=== PATIENT | female | born 1950 | race Caucasian/White ===

== ENCOUNTER → 2018-11-20 13:56 | Outpatient (CLI) | payer OTHER, SELFPAY ==
--- NOTE | 2018-11-20 | DI.RAD.S_ITS ---
PROCEDURE: XR CHEST 2V INDICATIONS: COUGH TECHNIQUE: 2 views of the chest were acquired. COMPARISON: [facility], CHEST 2 VIEW, 09/21/2016, 14:00. [facility], CHEST 2 VIEW, 11/07/2015, 11:07. FINDINGS: Surgical changes and devices: None. Lungs and pleura: No pleural effusions or pneumothorax. Lungs are clear. Mediastinum: Mediastinal contours are normal. Heart size is normal. Bones and chest wall: No suspicious bony abnormalities. Soft tissues appear unremarkable. IMPRESSION: Normal for age, source of current symptoms is not seen. Dictated by: Terry Jules M.D. on 11/20/2018 at 14:48 Approved by: Terry Jules M.D. on 11/20/2018 at 14:48
== END ==
PROVIDERS: PCP Physician Assistant; Visit Provider Internal Medicine
DX: R05 Cough (principal)
CPT/HCPCS: 71046

== ENCOUNTER → 2019-01-02 13:15 | Outpatient (CLI) | payer MEDICARE, SELFPAY ==
[2019-01-02 13:50] LABS: Hemoglobin A1C% w Est Avg Glu 8.9 % (4.0-6.0)
[2019-01-02 14:00] LABS: Alanine Aminotransferase 33 IU/L (9-52); Albumin 4.6 g/dL (3.5-5.0); Albumin Globulin Ratio 1.9 (1.0-2.8); Alkaline Phosphatase 66 U/L (38-126); Aspartate Aminotransferase 27 IU/L (14-36); BUN Creatinine Ratio 25.7 (6-22); Bilirubin Total 0.5 mg/dL (0.2-1.3); Blood Urea Nitrogen 18 mg/dL (7-17); Calcium 10.1 mg/dL (8.4-10.2); Carbon Dioxide 29 mmol/L (22-32); Chloride 104 mmol/L (98-107); Cholesterol 160 mg/dL (140-199); Estimated Glomerular Filt Rate > 60.0 mL/min (>60); Globulin 2.4 g/dL (1.7-4.1); Glucose 127 mg/dL (80-110); HDL Cholesterol 59 mg/dL (40-60); HEMOLYSIS 61 (0-50); LDL Cholesterol Calculated 67 mg/dL (<100); Potassium 5.1 mmol/L (3.4-5.1); Sodium 142 mmol/L (137-145); Triglycerides 169 mg/dL (35-150)
[2019-01-02 14:01] LABS: Add Manual Diff / Slide Review NO; Basophils Absolute Auto 100 /uL (0-100); Basophils Percent Auto 0.4 % (0-2); Eosinophils Absolute Auto 200 /uL (0-450); Eosinophils Percent Auto 1.5 % (2-4); Hematocrit 43.6 % (36-46); Hemoglobin 13.9 g/dL (12.0-16.0); Lymphocytes Absolute Auto 7900 /uL (1100-4500); Lymphocytes Percent Auto 53.3 % (25-40); Mean Corpuscular HGB Conc 31.9 % (30-36); Mean Corpuscular Hemoglobin 25.3 PG (26-34); Mean Corpuscular Volume 79.3 fL (80-100); Monocytes Absolute Auto 600 /uL (0-900); Neutrophils Absolute Auto 6000 /uL (1500-7000); Neutrophils Percent Auto 40.8 % (50-75); Platelet Count 230 X10^3/uL (150-400); Red Blood Cell Count 5.49 X10^6/uL (4.0-5.2); Red Cell Distribution Width 14.2 % (11.6-14.8); White Blood Cell Count 14.8 X10^3/uL (4.5-11.0)
== END ==
PROVIDERS: PCP Physician Assistant; Visit Provider Physician Assistant
DX: E11.9 Type 2 diabetes mellitus without complications (principal); I10 Essential (primary) hypertension; J45.21 Mild intermittent asthma with (acute) exacerbation; E78.2 Mixed hyperlipidemia
CPT/HCPCS: 36415; 80053; 80061; 83036; 85025

== ENCOUNTER → 2019-01-20 10:05 | Outpatient (CLI) | payer MEDICARE, SELFPAY ==
--- NOTE | 2019-01-20 | DI.MG.S_ITS ---
BILATERAL DIGITAL SCREENING MAMMOGRAM 3D/2D WITH CAD: 01/20/2019 CLINICAL: Routine screening. Comparison is made to exams dated: 09/24/2017 mammogram and 07/15/2012 mammogram - [facility]. There are scattered fibroglandular elements in both breasts. Current study was also evaluated with a Computer Aided Detection (CAD) system. There are benign calcifications in both breasts. No significant masses, calcifications, or other findings are seen in either breast. There has been no significant interval change. IMPRESSION: There is no mammographic evidence of malignancy. A 1 year screening mammogram is recommended. This exam was interpreted at Station ID: [id number]. NOTE: For mammograms, a report in lay terms will be sent to the patient. Approximately 15% of breast malignancies will not be visualized mammographically. In the management of a palpable breast mass, a negative mammogram must not discourage biopsy of a clinically suspicious lesion. Electronically Signed By: Jordan rowell/carri:01/20/2019 11:01:09 letter sent: Normal Exam ACR BI-RADS Category 2: Benign Finding(s) 3342F
== END ==
PROVIDERS: PCP Physician Assistant; Visit Provider Physician Assistant
DX: Z12.31 Encounter for screening mammogram for malignant neoplasm of breast (principal)
CPT/HCPCS: 77063; 77067

== ENCOUNTER → 2019-10-06 14:06 | Outpatient (CLI) | payer MEDICARE, SELFPAY ==
--- NOTE | 2019-10-06 | DI.RAD.S_ITS ---
PROCEDURE: XR CHEST 2V INDICATIONS: cough TECHNIQUE: 2 views of the chest were acquired. COMPARISON: [facility], CR, XR CHEST 2V, 11/20/2018, 14:00. FINDINGS: Surgical changes and devices: None. Lungs and pleura: Lungs are clear. No pleural effusions or pneumothorax. Mediastinum: Mediastinal contours are normal. Heart size is normal. Bones and chest wall: No suspicious bony abnormalities. Soft tissues appear unremarkable. IMPRESSION: No acute disease. Dictated by: Melchor Ascencio M.D. on 10/06/2019 at 17:36 Approved by: Melchor Ascencio M.D. on 10/06/2019 at 17:37
[2019-10-06 17:41] LABS: Alanine Aminotransferase 26 IU/L (<35); Albumin 4.4 g/dL (3.5-5.0); Albumin Globulin Ratio 1.9 (1.0-2.8); Alkaline Phosphatase 85 U/L (38-126); Aspartate Aminotransferase 23 IU/L (14-36); BUN Creatinine Ratio 24.3 (6-22); Bilirubin Total 0.4 mg/dL (0.2-1.3); Blood Urea Nitrogen 17 mg/dL (7-17); Calcium 10.2 mg/dL (8.4-10.2); Carbon Dioxide 31 mmol/L (22-32); Chloride 104 mmol/L (98-107); Cholesterol 177 mg/dL (140-199); Estimated Glomerular Filt Rate > 60.0 mL/min (>60); Globulin 2.3 g/dL (1.7-4.1); Glucose 138 mg/dL (80-110); HDL Cholesterol 58 mg/dL (40-60); HEMOLYSIS < 15 (0-50); LDL Cholesterol Calculated 81 mg/dL (<100); Potassium 3.9 mmol/L (3.4-5.1); Sodium 142 mmol/L (137-145); Total Protein 6.7 g/dL (6.3-8.2); Triglycerides 188 mg/dL (35-150)
[2019-10-06 18:08] LABS: Basophils Absolute Auto 0 /uL (0-100); Basophils Percent Auto 0.2 % (0-2); Eosinophils Absolute Auto 200 /uL (0-450); Eosinophils Percent Auto 1.4 % (2-4); Hematocrit 42.7 % (36-46); Hemoglobin 13.5 g/dL (12.0-16.0); Lymphocytes Absolute Auto 7200 /uL (1100-4500); Lymphocytes Percent Auto 53.8 % (25-40); Mean Corpuscular HGB Conc 31.7 % (30-36); Mean Corpuscular Hemoglobin 25.5 PG (26-34); Mean Corpuscular Volume 80.4 fL (80-100); Monocytes Absolute Auto 500 /uL (0-900); Monocytes Percent Auto 3.4 % (3-14); Neutrophils Absolute Auto 5600 /uL (1500-7000); Neutrophils Percent Auto 41.2 % (50-75); Platelet Count 189 X10^3/uL (150-400); Red Blood Cell Count 5.31 X10^6/uL (4.0-5.2); Red Cell Distribution Width 13.8 % (11.6-14.8); White Blood Cell Count 13.5 X10^3/uL (4.5-11.0)
[2019-10-06 18:29] LABS: Hemoglobin A1C% w Est Avg Glu 7.8 % (4.0-6.0)
[2019-10-06 18:41] LABS: Add Manual Diff / Slide Review SLIDE REVIEW; RBC Morphology Normal Morphology; Smudge Cells 1+
== END ==
PROVIDERS: PCP Physician Assistant; Visit Provider Physician Assistant
DX: R05 Cough (principal); I10 Essential (primary) hypertension; E11.9 Type 2 diabetes mellitus without complications; E78.2 Mixed hyperlipidemia
CPT/HCPCS: 71046; 80053; 80061; 83036; 85025

== ENCOUNTER → 2019-10-15 10:52 | Outpatient (CLI) | payer MEDICARE, SELFPAY ==
--- NOTE | 2019-10-16 13:51 | PM.PFT.1 ---
Pulmonary Function Test Referral & Results Date Patient Seen: 10/15/19 Requesting provider: Merline Mehta Results: The spirometry demonstrates an FVC of 1.98 L which is 76% of predicted. The FEV1 was measured at 1.63 L which is 82% of predicted. The FEV1/FVC ratio was 82 which is 108% of predicted. Following the administration of bronchodilator there was no change. Lung volumes show an SVC of 1.78 L which is 71% of predicted. The diffusing capacity was measured at 17.0 which is 90% of predicted. The maximum voluntary ventilation was reduced Interpretation: This study demonstrates very mild obstructive lung disease based on slight reduction in FEV1 without evidence of benefit following bronchodilator There is also mild reduction lung volumes suggesting mild restrictive lung disease Clinical correlation suggested
== END ==
PROVIDERS: PCP Physician Assistant; Visit Provider Physician Assistant
DX: J45.21 Mild intermittent asthma with (acute) exacerbation (principal)
CPT/HCPCS: 94060; 94726; 94729

== ENCOUNTER → 2019-10-29 13:29 | Oncology outpatient (ONC) | payer MEDICARE, SELFPAY ==
[2019-10-29 13:55] VITALS: BP 132/76; PULSE 83; RESP 18; TEMP 36.6; O2SAT 97
--- NOTE | 2019-10-29 13:57 | ONC.CONS ---
History of Present Illness - Data of Consult Patient: new to practice Consult date: 10/29/19 Requesting Physician: Merline Mehta PA-C Primary Care Provider: Merline Mehta PA-C - Consult Narrative Reason for consult: Lymphocytosis with smudged cells Narrative: Eliza Gupta is a 69 year old female. She has been followed by her primary care provider Katherine Granados for her known diagnosis of diabetes and hypertension. According to patient, during her previous 2 visits, she was informed of an elevated white blood cell counts. The most recent laboratory tests on 10/06/2019 showed WBC 13.5, hemoglobin 13.5, hematocrit 42.7, platelets 189, absolute lymphocyte count 7200, and smudge cells 1+. She was then referred to our clinic for further evaluation. Clinically, patient denies any lumps or bumps or lymph nodes enlargement. She denies fever or night sweats or chills. She denies any on usual fatigue. She has some back pain. She has history of erectile bowel syndrome and has been very careful with food. Otherwise she complains abdominal discomfort and pain. She denies any diarrhea or constipation. CC: Lissy Del Angel MD Patient reports pain?: No Home Medications and Allergies Home Medications Medication Instructions Recorded Confirmed Type Lantus U-100 Insulin 35 unit SQ BID #0 12/22/12 07/11/19 History aspirin 650 mg PO QDAY #0 12/22/12 10/29/19 History losartan [Cozaar] 100 mg PO QDAY #0 12/22/12 07/11/19 History simvastatin [Zocor] 40 mg PO HS #0 12/22/12 10/29/19 History dulaglutide [Trulicity] 1.5 mg SUBCUT DAILY 10/29/19 10/29/19 History Allergies Allergy/AdvReac Type Severity Reaction Status Date / Time OPIATES Allergy Unknown Uncoded 03/05/18 12:20 Medical History - Medical, Surgical, Family History Medical History: Medical History (Last Updated 10/29/19 @ 14:03 by Lissy Del Angel MD) Diabetes Hypertension IBS (irritable bowel syndrome) Surgical History: Surgical History History of tonsillectomy Status post tubal ligation Family History: Family History (Last Updated 10/29/19 @ 14:05 by Lissy Del Angel MD) Mother Melanoma Ovarian cancer - Social History Smoking Status: Never smoker Substance Use Type: does not use Alcohol Intake: current (once or twice a week, champange.) Review of Systems All systems PM: reviewed and no additional remarkable complaints except as stated Exam Vital signs: Vital Signs Temp Pulse Resp BP Pulse Ox 10/29/19 13:55 98 F 83 18 132/76 97 Intake and Output 10/28/19 10/29/19 10/29/19 23:59 07:59 15:59 Other: Weight 98.7 kg Patient Weight 10/29/19 23:59 Weight 98.7 kg Narrative: Gen: WDWN, obese, NAD, pleasant and cooperative, accompanied by her HEENT: NCAT, EOMI, PERRLA, anicteric sclera. Neck: Supple, No palpable thyromegaly or lymphadenopathy. Respiratory: CTAB, no wheezes audible. No JVD Cardiovascular: RRR, S1 and S2 normal, no M/G/R. Abdomen: Soft, protuberant, and difficult to examine for organomegaly Extremities: No LE pitting edema. Lymphatic: no palpable lymph nodes in the neck, axillae, or groins. Neurological: AOx3, CN II-XII grossly intact. No focal motor or sensory deficit. Psychiatric: Normal affect. Results - Labs Pending - Imaging Additional studies: Procedures Injection or infusion of other therapeutic or prophylactic substance (12/22/12) Assessment and Plan (1) Lymphocytosis Overview: 69 year old with laboratory findings of lympphocytosis and smudge cells. No lymphadenopathy and no B symptoms. Assessment: First of all, I explained to the patient that she has increased total white blood cell count, that is due to the increase in the absolute lymphocyte count. In addition microscopic examination of her peripheral blood showed smudge cells. I explained to them that these findings are suspicious for possible chronic lymphocytic leukemia. To further confirm the diagnosis, I would obtain blood samples for lymphoma leukemia flow cytometry. Today I touched briefly about the natural course of chronic lymphocytic leukemia. I talked with her that CLL is a chronic disease. Majority of the patients with CLL can be monitored without active treatment. Plan: CBC, CMP, LDH, B2M CLL flowcytometry RTC in 2 weeks to review the results.
--- NOTE | 2019-11-11 12:43 | ONC.SCHED ---
patient asked to cancel 11/16/19 appt/they sold their house and had to be out in 13 days/they are moving to [place], when she finds a provider in [place], she'll have her records sent down
== END ==
PROVIDERS: Family Provider Physician Assistant; PCP Physician Assistant; Visit Provider Internal Medicine Hematology & Oncology
DX: D72.820 Lymphocytosis (symptomatic) (principal); E11.9 Type 2 diabetes mellitus without complications; I10 Essential (primary) hypertension
CPT/HCPCS: 36415; 80053; 82232; 83615; 85025; 99204; 99214

== ENCOUNTER → 2019-10-29 14:30 | Outpatient (CLI) | payer MEDICARE, SELFPAY ==
[2019-10-29 15:26] LABS: Add Manual Diff / Slide Review NO; Basophils Absolute Auto 100 /uL (0-100); Basophils Percent Auto 0.7 % (0-2); Eosinophils Absolute Auto 300 /uL (0-450); Eosinophils Percent Auto 1.8 % (2-4); Hematocrit 41.3 % (36-46); Hemoglobin 13.6 g/dL (12.0-16.0); Lymphocytes Absolute Auto 7600 /uL (1100-4500); Lymphocytes Percent Auto 53.9 % (25-40); Mean Corpuscular HGB Conc 32.9 % (30-36); Mean Corpuscular Hemoglobin 25.9 PG (26-34); Mean Corpuscular Volume 78.8 fL (80-100); Monocytes Absolute Auto 400 /uL (0-900); Neutrophils Absolute Auto 5700 /uL (1500-7000); Neutrophils Percent Auto 40.6 % (50-75); Platelet Count 183 X10^3/uL (150-400); Red Blood Cell Count 5.24 X10^6/uL (4.0-5.2); Red Cell Distribution Width 13.8 % (11.6-14.8); White Blood Cell Count 14.1 X10^3/uL (4.5-11.0)
[2019-10-29 15:49] LABS: Alanine Aminotransferase 24 IU/L (<35); Albumin 4.4 g/dL (3.5-5.0); Albumin Globulin Ratio 1.8 (1.0-2.8); Alkaline Phosphatase 110 U/L (38-126); Aspartate Aminotransferase 22 IU/L (14-36); BUN Creatinine Ratio 28.8 (6-22); Bilirubin Total 0.5 mg/dL (0.2-1.3); Blood Urea Nitrogen 23 mg/dL (7-17); Calcium 9.7 mg/dL (8.4-10.2); Carbon Dioxide 26 mmol/L (22-32); Chloride 104 mmol/L (98-107); Estimated Glomerular Filt Rate > 60.0 mL/min (>60); Globulin 2.4 g/dL (1.7-4.1); Glucose 250 mg/dL (80-110); HEMOLYSIS < 15 (0-50); Lactate Dehydrogenase 341 U/L (313-618); Potassium 4.2 mmol/L (3.4-5.1); Sodium 139 mmol/L (137-145); Total Protein 6.8 g/dL (6.3-8.2)
[2019-10-31 15:27] LABS: Beta-2-Microglobulin 2.08 mg/L (< 2.52)
== END ==
PROVIDERS: PCP Physician Assistant; Visit Provider Internal Medicine Hematology & Oncology
DX: D72.820 Lymphocytosis (symptomatic) (principal)
CPT/HCPCS: 36415; 80053; 82232; 83615; 85025

== ENCOUNTER → 2019-11-06 09:53 | Outpatient (CLI) | payer MEDICARE, SELFPAY ==
--- NOTE | 2019-11-06 | DI.RAD.S_ITS ---
PROCEDURE: FL BARIUM SWALLOW W SPEECH INDICATIONS: Dysphagia, unspecified TECHNIQUE: Examination was conducted in conjunction with speech pathology per standard protocol. In the lateral projection, filming was performed of the patient swallowing. AP projection filming may also be performed with patient swallowing. COMPARISON: None. FINDINGS: Function: The oral preparatory phase appears normal, with proper containment. The subsequent oral propulsive phase, pharyngeal phase, and esophageal phase of swallowing also appear normal with all proffered substances. No laryngotracheal penetration or aspiration. No pathologic vallecular pooling. Morphology: No cricopharyngeal bar is identified. No cervical esophageal webs. No Zenker's diverticulum. No strictures. IMPRESSION: No aspiration. Dictated by: Melchor Ascencio M.D. on 11/06/2019 at 11:38 Approved by: Melchor Ascencio M.D. on 11/06/2019 at 11:39
--- NOTE | 2019-11-06 15:54 | ST.SWALLOW ---
Visit Care Team Role Provider Type Merline Mehta PA-C Attending Provider Advanced Special Officer [employer]omat Primary Care Provider Specialty: Internal Medicine Address: [address] [place] [address], [facility] Email: [email or web address] ST Modified Barium Swallow Study CRA OFFICER Modified Barium Swallow Study Start: 11/06/19 11:25 Freq: Status: Active Protocol: Document 11/06/19 11:25 TLC (Rec: 11/06/19 11:29 TLC [id number]) Modified Barium Swallow Study Total Time Visit Start Time 10:30 Visit Stop Time 11:00 Total Visit Minutes 30 Visit Information Visit Number 1 Referral Referring Physician Merline Mehta PA-C Reason for Referral Dysphagia Setting Setting Outpatient Care Patient Information Identification Type Name Patient History Patient complains of episodes of food getting stuck which occur 2-3 times/month and usually begins with hiccups. Hx of GERD (not treated for). Subjective Observations Alert, oriented and cooperative. Patient Positioning Position View Lat-A/P Imaging Lateral View Textures Administered Trials Presented Thin Liquid via Spoon,Thin Liquid via Cup,[place] Liquid via Spoon,[place] Liquid via Cup,Honey Liquid via Spoon, Dysphagia Blenderized Textures ,Regular Textures Oral Phase Source: MBSIMP (TM) (C) Bolus Specific Scoring Grid Lip Closure No Impairment (WNL) Tongue Control During Bolus Hold No Impairment (WNL) Bolus Prep/Mastication No Impairment (WNL) Bolus Transport/Lingual Motion No Impairment (WNL) Oral Residue No Impairment (WNL) Residue Clearing No Impairment (WNL) Additional Oral Phase Observations No oral phase impairments observed. Pharyngeal Phase Source: MBSIMP (TM) (C) Bolus Specific Scoring Grid Delayed Initiation of Pharyngeal Swallow No Soft Palate Elevation No Impairment (WNL) Tongue Base Strength/Range of Motion No Impairment (WNL) Laryngeal Elevation No Impairment (WNL) Anterior Hyoid Movement Minimal Impairment Epiglottic Range of Motion Minimal Impairment Vallecular Residue Yes Clearance of Vallecular Residue Minimal Impairment Laryngeal Vestibular Closure No Impairment (WNL) Pharyngeal Stripping Wave No Impairment (WNL) Pharyngeal Contraction No Impairment (WNL) Upper Esophageal Sphincter Opening No Impairment (WNL) Residue in the Pyriform Sinuses No Additional Pharyngeal Phase Observations Mild vallecular residue increased as the study progressed and improved, but did not clear with dry swallow . No penetration or aspiration during the swallow. A/P View Textures Administered Trials Presented [place] Liquid via Spoon, Pudding Thick Liquid via Spoon A/P View Observations Pharyngeal Contraction No Impairment (WNL) Esophageal Observations Esophageal Function Limited view Clinical Impressions Findings No cause of symptoms identified. Recommend barium swallow for further evaluation of esophageal function. Patient Appropriate for Therapy No Recommendations Aspiration Precautions Recommended Precautions Alternate Liquids/Solids,Small Bites/Sips,Double Swallow
== END ==
PROVIDERS: PCP Physician Assistant; Visit Provider Physician Assistant
DX: R13.10 Dysphagia, unspecified (principal)
CPT/HCPCS: 74230; 92611